=== PATIENT | female | born 1975 | race Caucasian/White ===

== ENCOUNTER 2019-02-08 15:23 | Emergency (ER) | payer MEDICAID ==
[~2019-02-08] VITALS: Ht 157.5 cm; Wt 160.0 kg
[~2019-02-08 15:23] MED LIST: CLIN-90 PO; METH-360 PO
[2019-02-08 15:42] VITALS: BP 133/85
[2019-02-08 16:13] LABS: BASOPHILS % (AUTO) 0.4 % (0-1); EOSINOPHILS # (AUTO) 0.1 X10'3 (0-0.9); EOSINOPHILS % (AUTO) 1.8 % (0-6); HEMATOCRIT 36.4 % (35.0-45.0); HEMOGLOBIN 12.4 g/dl (12.0-16.0); LYMPHOCYTES # (AUTO) 2.6 X10'3 (1.1-4.8); LYMPHOCYTES % (AUTO) 35.9 % (21-51); MEAN CORPUSCULAR HGB CONC 34.1 g/dL (33.0-36.5); MEAN CORPUSCULAR VOLUME 87.8 FL (78-98); MEAN PLATELET VOLUME 7.4 FL (7.4-10.4); MONOCYTES # (AUTO) 0.7 X10'3 (0-0.9); MONOCYTES % (AUTO) 10.3 % (2-12); NEUTROPHILS # (AUTO) 3.7 X10'3 (1.8-7.7); NEUTROPHILS % (AUTO) 51.6 % (42-75); PLATELET COUNT 251 X10'3 (140-440); RED BLOOD COUNT 4.15 X10'6 (4.20-5.60); RED CELL DISTRIBUTION WIDTH 13.5 % (11.5-14.5); WHITE BLOOD COUNT 7.1 X10'3 (4.5-11.0)
[2019-02-08 16:31] LABS: ALANINE AMINOTRANSFERASE 31 U/L (12-78); ALBUMIN 3.4 G/DL (3.4-5.0); ALBUMIN/GLOBULIN RATIO 0.9 (1.1-1.5); ALKALINE PHOSPHATASE 91 IU/L (46-116); ANION GAP 8 (8-16); ASPARTATE AMINO TRANSFERASE 19 U/L (10-37); BILIRUBIN,TOTAL 0.2 MG/DL (0.1-1.0); BLOOD UREA NITROGEN 13 MG/DL (7-18); CALCIUM 8.7 MG/DL (8.5-10.1); CHLORIDE 107 MMOL/L (99-107); CREATININE 0.62 MG/DL (0.40-0.90); GLUCOSE 105 MG/DL (70-104); POTASSIUM 3.9 MMOL/L (3.5-5.1); SODIUM 141 MMOL/L (135-145); TOTAL CARBON DIOXIDE 25.7 MMOL/L (24-32); TOTAL PROTEIN 7.2 G/DL (6.4-8.2); eGFR > 90 ML/MIN
[2019-02-08 16:36] LABS: PARTIAL THROMBOPLASTIN TIME 25 SECONDS (22-32)
[2019-02-10 12:49] LABS: OCCULT BLOOD STOOL NEGATIVE (Neg)
== END 2019-02-08 17:43 | disposition home or self-care (01) ==
LOC: ER 15:23
DX: K92.2 Gastrointestinal hemorrhage, unspecified (principal); G43.909 Migraine, unspecified, not intractable, without status migrainosus; J45.909 Unspecified asthma, uncomplicated; K21.9 Gastro-esophageal reflux disease without esophagitis; Z88.0 Allergy status to penicillin; Z79.899 Other long term (current) drug therapy
CPT/HCPCS: 36415; 80053; 82272; 85025; 85610; 85730; 86885; 86900; 86901; 99283

== ENCOUNTER 2023-02-11 13:59 | Emergency (ER) | payer MEDICARE, MEDICAID ==
[~2023-02-11] VITALS: Ht 157.5 cm; Wt 115.0 kg
[~2023-02-11 13:59] MED LIST changes: -CLIN-90 PO; +CLIN-97 PO
[2023-02-11 14:07] VITALS: BP 127/84; PULSE 108; RESP 14; TEMP 98.4; O2SAT 97
[2023-02-11 14:44] LABS: BASOPHILS % (AUTO) 0.3 % (0-1); EOSINOPHILS # (AUTO) 0.1 X10'3 (0-0.9); EOSINOPHILS % (AUTO) 0.6 % (0-6); HEMATOCRIT 43.2 % (35.0-45.0); HEMOGLOBIN 14.3 g/dl (12.0-16.0); LYMPHOCYTES # (AUTO) 3.3 X10'3 (1.1-4.8); LYMPHOCYTES % (AUTO) 30.8 % (21-51); MEAN CORPUSCULAR HEMOGLOBIN 27.5 PG (27.0-31.0); MEAN CORPUSCULAR HGB CONC 33.2 g/dL (33.0-36.5); MEAN CORPUSCULAR VOLUME 82.9 FL (78-98); MEAN PLATELET VOLUME 7.9 FL (7.4-10.4); MONOCYTES # (AUTO) 1.2 X10'3 (0-0.9); MONOCYTES % (AUTO) 11.6 % (2-12); NEUTROPHILS # (AUTO) 6.1 X10'3 (1.8-7.7); NEUTROPHILS % (AUTO) 56.7 % (42-75); PLATELET COUNT 360 X10'3 (140-440); RED BLOOD COUNT 5.21 X10'6 (4.20-5.60); RED CELL DISTRIBUTION WIDTH 15.2 % (11.5-14.5); WHITE BLOOD COUNT 10.7 X10'3 (4.5-11.0)
[2023-02-11 15:01] LABS: ALANINE AMINOTRANSFERASE 23 U/L (12-78); ALBUMIN/GLOBULIN RATIO 0.9 (1.1-1.5); ALKALINE PHOSPHATASE 95 IU/L (46-116); ANION GAP 12 (8-16); ASPARTATE AMINO TRANSFERASE 18 U/L (10-37); BILIRUBIN,TOTAL 0.6 MG/DL (0.1-1.0); BLOOD UREA NITROGEN 17 MG/DL (7-18); BUN/CREATININE RATIO 19.8 (10.0-20.0); CALCIUM 9.5 MG/DL (8.5-10.1); CHLORIDE 102 MMOL/L (99-107); CREATININE 0.86 MG/DL (0.40-0.90); GLUCOSE 99 MG/DL (70-104); LIPASE 29 U/L (16-77); POTASSIUM 3.3 MMOL/L (3.5-5.1); SODIUM 141 MMOL/L (135-145); TOTAL CARBON DIOXIDE 26.8 MMOL/L (24-32); TOTAL PROTEIN 8.5 G/DL (6.4-8.2); eCRCL 64 ML/MIN; eGFR 71 ML/MIN
[2023-02-11] MEDS ORDERED: proCHLORperazine 10 MG/2 ml inj IV ONE (15:25)
[2023-02-11] MEDS ORDERED: normal saline 1000ml 1,000 ML IV ONE (15:25)
[2023-02-11] MEDS ORDERED: diphenhydrAMINE 50 mg/ml inj IV ONE (15:25)
[2023-02-11] MEDS ORDERED: iohexol 300mg/ml 100ml inj. ONE (16:26)
[2023-02-11 17:51] LABS: BILIRUBIN,URINE NEGATIVE (Neg); CLARITY,URINE CLOUDY (Clear); COLOR,URINE YELLOW (Yellow); GLUCOSE, URINE NEGATIVE (Neg); KETONES,URINE NEGATIVE (Neg); LEUKOCYTE ESTERASE ,URINE NEGATIVE (Neg); NITRITES, URINE NEGATIVE (Neg); OCCULT BLOOD,URINE NEGATIVE (Neg); PROTEIN,URINE NEGATIVE (Neg); URINE HCG NEGATIVE (NEG); UROBILINOGEN,URINE 0.2 E.U/dL (0.2-1.0)
[2023-02-11 18:03] LABS: UA COLLECTION TYPE CLN CATCH MIDSTREAM
[2023-02-11 18:06] LABS: HYALINE CASTS 0-3 /LPF (NEGATIVE); MUCUS STRANDS FEW /LPF (Neg); SQUAMOUS EPITHELIAL CELL,UR MANY /LPF (FEW)
[2023-02-11 18:07] LABS: BACTERIA,URINE FEW /HPF (Neg); RBC,URINE 0-2 /HPF (0-2); TRANSITIONAL EPI CELLS,URINE FEW /HPF; WBC,URINE 0-4 /HPF (0-4)
[2023-02-11] MEDS ORDERED: ONDA4TAB12 PO (18:18)
[2023-02-12] MEDS ORDERED: MESSAGE TO NURSING IV SCH (16:30)
[2023-02-13 17:51] LABS: CHLAMYDIA TRACHOMATIS, NAA Negative (Negative)
== END 2023-02-11 18:25 | disposition home or self-care (01) ==
LOC: ER 13:59
DX: A08.4 Viral intestinal infection, unspecified (principal)
CPT/HCPCS: 36415; 74177; 76856; 80053; 81001; 81025; 82948; 83690; 85025; 87491; 87591; 93976; 96361; 96374; 96375; 99285; J0780; J1200; J3490; J7030; Q9967

== ENCOUNTER 2023-03-04 10:01 | Emergency (ER) | payer MEDICARE, MEDICAID ==
[~2023-03-04] VITALS: Ht 157.5 cm; Wt 116.9 kg
[~2023-03-04 10:01] MED LIST changes: +ONDA4TAB12 PO
[2023-03-04 11:14] LABS: BASOPHILS % (AUTO) 0.2 % (0-1); EOSINOPHILS % (AUTO) 0.3 % (0-6); HEMATOCRIT 40.1 % (35.0-45.0); HEMOGLOBIN 13.2 g/dl (12.0-16.0); LYMPHOCYTES # (AUTO) 1.6 X10'3 (1.1-4.8); LYMPHOCYTES % (AUTO) 10.4 % (21-51); MEAN CORPUSCULAR HEMOGLOBIN 27.2 PG (27.0-31.0); MEAN CORPUSCULAR HGB CONC 32.9 g/dL (33.0-36.5); MEAN CORPUSCULAR VOLUME 82.6 FL (78-98); MEAN PLATELET VOLUME 7.4 FL (7.4-10.4); MONOCYTES # (AUTO) 1.6 X10'3 (0-0.9); MONOCYTES % (AUTO) 10.6 % (2-12); NEUTROPHILS # (AUTO) 11.9 X10'3 (1.8-7.7); NEUTROPHILS % (AUTO) 78.5 % (42-75); PLATELET COUNT 309 X10'3 (140-440); RED BLOOD COUNT 4.86 X10'6 (4.20-5.60); RED CELL DISTRIBUTION WIDTH 16.1 % (11.5-14.5); WHITE BLOOD COUNT 15.2 X10'3 (4.5-11.0)
[2023-03-04 11:31] LABS: BILIRUBIN,URINE NEGATIVE (Neg); CLARITY,URINE SLIGHTLY CLOUDY (Clear); COLOR,URINE YELLOW (Yellow); GLUCOSE, URINE 500 mg/dl (Neg); KETONES,URINE 15 mg/dl (Neg); LEUKOCYTE ESTERASE ,URINE NEGATIVE (Neg); NITRITES, URINE NEGATIVE (Neg); OCCULT BLOOD,URINE NEGATIVE (Neg); PROTEIN,URINE NEGATIVE (Neg); UROBILINOGEN,URINE 0.2 E.U/dL (0.2-1.0)
[2023-03-04 11:34] LABS: UA COLLECTION TYPE CLN CATCH MIDSTREAM
[2023-03-04 11:36] LABS: URINE HCG NEGATIVE (NEG)
[2023-03-04 11:36] LABS: ALANINE AMINOTRANSFERASE 24 U/L (12-78); ALBUMIN 3.5 G/DL (3.4-5.0); ALBUMIN/GLOBULIN RATIO 0.8 (1.1-1.5); ALKALINE PHOSPHATASE 93 IU/L (46-116); ANION GAP 14 (8-16); ASPARTATE AMINO TRANSFERASE 15 U/L (10-37); BILIRUBIN,TOTAL 0.4 MG/DL (0.1-1.0); BLOOD UREA NITROGEN 18 MG/DL (7-18); BUN/CREATININE RATIO 23.7 (10.0-20.0); CHLORIDE 101 MMOL/L (99-107); CREATININE 0.76 MG/DL (0.40-0.90); GLUCOSE 92 MG/DL (70-104); LIPASE 32 U/L (16-77); POTASSIUM 3.6 MMOL/L (3.5-5.1); SODIUM 138 MMOL/L (135-145); TOTAL CARBON DIOXIDE 23.4 MMOL/L (24-32); TOTAL PROTEIN 7.7 G/DL (6.4-8.2); eCRCL 72 ML/MIN; eGFR 82 ML/MIN
[2023-03-04 11:50] LABS: SQUAMOUS EPITHELIAL CELL,UR MANY /LPF (FEW)
[2023-03-04 11:52] LABS: TRANSITIONAL EPI CELLS,URINE FEW /HPF
[2023-03-04 11:53] LABS: MUCUS STRANDS FEW /LPF (Neg)
[2023-03-04 11:55] LABS: BACTERIA,URINE FEW /HPF (Neg); RBC,URINE 0-2 /HPF (0-2); WBC,URINE 0-4 /HPF (0-4)
[2023-03-04 11:59] LABS: CAL OXALATE CRYSTALS FEW /HPF (NEGATIVE)
[2023-03-04] MEDS ORDERED: iohexol 300 MG/1 ML 50ml polymer ONE (14:22)
[2023-03-04 17:51] VITALS: BP 120/77; PULSE 105; RESP 16; TEMP 98.5; O2SAT 96
[2023-03-05] MEDS ORDERED: MESSAGE TO NURSING IV SCH (15:15)
== END 2023-03-04 17:58 | disposition home or self-care (01) ==
LOC: ER 10:01
DX: R10.2 Pelvic and perineal pain (principal); R10.30 Lower abdominal pain, unspecified; G43.909 Migraine, unspecified, not intractable, without status migrainosus; J45.909 Unspecified asthma, uncomplicated; Z88.0 Allergy status to penicillin; Z79.2 Long term (current) use of antibiotics; Z79.899 Other long term (current) drug therapy
CPT/HCPCS: 36415; 74177; 80053; 81001; 81025; 83690; 85025; 99285; J3490; Q9967

== ENCOUNTER 2023-09-18 06:51 | Outpatient (CLI) | payer MEDICARE, MEDICAID ==
[~2023-09-18 06:51] MED LIST changes: +GADOTERATE MEGLUMINE 7.5 MMOL/15 ML VIAL IV ONE; +LIDOcaine 1% (10mg/ml) 2ml vial ONE; +LIDOcaine 1% 30ml preserv. free vial ONE; +ONDA-243 PO; -ONDA4TAB12 PO; +iohexol 300 MG/1 ML 50ml polymer ONE
[2023-09-18] MEDS ORDERED: LIDOcaine 1%/PF 5ML 10 MG/ML VIAL ONE (07:27)
== END 2023-09-18 23:59 | disposition home or self-care (01) ==
LOC: RAD 06:51 → EDSTATUS 07:30 → RAD 23:59
PROVIDERS: ATTEND Pediatrics Sports Medicine
DX: M19.011 Primary osteoarthritis, right shoulder (principal); M75.41 Impingement syndrome of right shoulder; M75.121 Complete rotator cuff tear or rupture of right shoulder, not specified as traumatic; M75.51 Bursitis of right shoulder; Z86.73 Personal history of transient ischemic attack (TIA), and cerebral infarction without residual deficits; Z79.2 Long term (current) use of antibiotics; Z79.899 Other long term (current) drug therapy; Z88.0 Allergy status to penicillin
CPT/HCPCS: 23350; 73222; 77002; A9575; J2001; J3490; Q9967; 73040

== ENCOUNTER 2024-07-01 08:38 | Outpatient (CLI) | payer MEDICARE, MEDICAID ==
[~2024-07-01 08:38] MED LIST changes: -GADOTERATE MEGLUMINE 7.5 MMOL/15 ML VIAL IV ONE; -LIDOcaine 1% (10mg/ml) 2ml vial ONE; -LIDOcaine 1% 30ml preserv. free vial ONE; -iohexol 300 MG/1 ML 50ml polymer ONE
--- NOTE | 2024-07-02 09:58 | RADIOLOGY REPORT ---
PROCEDURE: MRI cervical spine without contrast. INDICATION: CERVICALGIA,SPONDYLOSIS,CERVICAL, COMPARISON: NoneNone available at time of dictation. TECHNIQUE: MRI of the cervical spine without intravenous contrast utilizing multiplanar, multisequen ce technique. FINDINGS: The alignment of the cervical spine vertebral bodies is preserved. The vertebral body heights are sarina ntained. The intervertebral disc spaces are maintained in height and signal characteristics. The bone marrow signal is homogenous and unremarkable. The cervical spinal cord is normal in signal character istics and caliber. Posterior fossa structures are unremarkable. No cerebellar tonsillar herniation. Paraspinal muscles are unremarkable. At the C2-C3 level, there is no evidence of central spinal canal or neuroforaminal stenosis. At the C3-C4 level, there is posterior disc osteophyte complex without significant canal stenosis. T here is no significant neural foraminal stenosis. At the C4-C5 level, there is broad-based posterior disc bulge. There is no significant canal stenosis . There is moderate left and mild right neural foraminal stenosis. At the C5-C6 level, there is no evidence of central spinal canal or neuroforaminal stenosis. At the C6-C7 level, there is posterior disc osteophyte complex. There is mild canal stenosis. Mild l eft and no significant right neural foraminal stenosis. At the C7-T1 level, there is broad-based posterior disc osteophyte complex. There is no significant c anal stenosis. Mild bilateral neural foraminal stenosis. Other: None. IMPRESSION: 1. Multilevel cervical spondylosis as described.
== END 2024-07-01 23:59 | disposition home or self-care (01) ==
LOC: MRI02 08:38
PROVIDERS: ATTEND Nurse Practitioner Adult Health
DX: M50.121 Cervical disc disorder at C4-C5 level with radiculopathy (principal); M48.02 Spinal stenosis, cervical region; M25.511 Pain in right shoulder; M47.22 Other spondylosis with radiculopathy, cervical region
CPT/HCPCS: 72141

== ENCOUNTER 2024-07-16 06:10 | Outpatient (CLI) | payer MEDICARE, MEDICAID ==
[2024-07-16] MEDS ORDERED: LIDOcaine 1% 30ml preserv. free vial ONE (06:38)
[2024-07-16] MEDS ORDERED: GADOTERATE MEGLUMINE 7.5 MMOL/15 ML VIAL IV ONE (06:38)
[2024-07-16] MEDS ORDERED: iohexol 300 MG/1 ML 50ml polymer ONE (06:38)
[2024-07-16] MEDS ORDERED: LIDOcaine 1%/PF 5ML 10 MG/ML VIAL ONE (06:38)
--- NOTE | 2024-07-16 07:35 | RADIOLOGY REPORT ---
PROCEDURE: Right Shoulder MRI Injection HISTORY: Right shoulder MRI arthrogram DOCUMENTATION: Informed consent was obtained and a procedural time out was performed. FT: 0.1 Dose (DAP): 1 Technique: Following adequate sterile preparation with chloroprep solution and local anesthesia using 1% lidocai ne, a 22-gauge needle was introduced into the right shoulder joint using intermittent fluoroscopic gu idance. Intra-articular location of the needle tip was confirmed with a small amount of Omnipaque con trast. No immediate competitions were seen. FINDINGS: There is contrast opacification of the joint capsule. Impression: Uneventful right shoulder injection for MRI arthrography Performed by Dr. Bennett
--- NOTE | 2024-07-16 10:42 | RADIOLOGY REPORT ---
CLINICAL INDICATION: STRAIN OF MUSC/TEND THE ROTATOR CUFF OF RIGHT SHOULDER, INIT COMPARISON: MR MRI UPPER EXTREMITY RIGHT on DOS: 09/18/23 TECHNIQUE: Multiplanar, multi-sequence MRI of the right shoulder was performed after the uneve ntful intra-articular administration of dilute gadolinium solution. Contrast: Please see separate procedure report INTERPRETATION: Glenohumeral joint: The joint is appropriately distended with intra-articular contrast. There is no f racture or bone marrow edema. The alignment is normal. Mild degenerative changes similar to prior milton dy. No full-thickness chondral defect. Acromioclavicular joint: The acromoclavicular joint is narrowed with capsular hypertrophy. Type 2 acr omion. Rotator cuff and bursae: There has been interval rotator cuff repair with multiple bone anchors noted in the humeral head and mild thickening in the supraspinatus tendon at the site of the previously ch aracterized Full-thickness tear. There is new, partial-thickness articular surface tear of supraspina tus. There is infraspinatus tendinosis and partial-thickness bursal surface tear. Teres minor tendon is intact. Subscapularis is intact. There is no muscle atrophy. There is no subacromial subdeltoid b ursal fluid. Biceps tendon and glenoid labrum: The biceps tendon is absent from the bicipital groove consistent wi th tenodesis. Blunting of the anterior superior and anterior inferior glenoid labrum consistent with degeneration. No new full-thickness labral tear. IMPRESSION: 1. Interval rotator cuff repair. New partial-thickness articular sided tear of supraspinatus. Parti al-thickness bursal sided tear of infraspinatus. No full-thickness rotator cuff tear. 2. Evidence of prior biceps tenodesis. 3. Stable mild degenerative changes in the glenohumeral joint.
== END 2024-07-16 23:59 | disposition home or self-care (01) ==
LOC: MRI 06:10
PROVIDERS: ATTEND Orthopaedic Surgery
DX: S46.011A Strain of muscle(s) and tendon(s) of the rotator cuff of right shoulder, initial encounter (principal); M19.011 Primary osteoarthritis, right shoulder; Z88.0 Allergy status to penicillin; M75.41 Impingement syndrome of right shoulder; M75.21 Bicipital tendinitis, right shoulder; Z79.899 Other long term (current) drug therapy; Z87.891 Personal history of nicotine dependence; X58.XXXA Exposure to other specified factors, initial encounter; Y93.89 Activity, other specified; Y92.89 Other specified places as the place of occurrence of the external cause; Y99.8 Other external cause status
CPT/HCPCS: 23350; 73222; 77002; A9575; J2003; J3490; Q9967